=== PATIENT | female | born 1955 | race Caucasian/White ===

== ENCOUNTER 2016-07-19 10:43 | Observation (INO) | payer MEDICAID ==
[~2016-07-19] VITALS: Ht 162.6 cm; Wt 121.7 kg
[2016-07-19 11:49] LABS: BASOPHILS 0.3 % (0-2); EOSINOPHILS 0.7 % (0-7); HEMATOCRIT 43.4 % (36.0-48.0); HEMOGLOBIN 14.3 g/dL (12-16); IMMATURE GRANULOCYTES 0.2 % (0-5); LYMPHOCYTES 4.3 % (15-50); MCH 30.2 pg (26.0-34.0); MCHC 32.9 g/dL (31.0-37.0); MCV 91.8 fL (80.0-100.0); MONOCYTES 5.4 % (2-11); NEUTROPHILS 89.1 % (40-80); PLATELET COUNT 237 10x3/uL (130-400); RBC 4.73 10x6/uL (4.00-5.40); RDW 13.8 % (11.5-14.5); WBC 12.9 10x3/uL (4.8-10.8)
[2016-07-19 12:27] LABS: ALBUMIN 3.6 g/dL (3.4-5.0); ALKALINE PHOSPHATASE 111 U/L (46-116); ALT (SGPT) 29 U/L (10-68); BILIRUBIN - TOTAL 0.76 mg/dL (0.2-1.3); CALC OSMOLALITY 279 mosm/kg (275-300); CALCIUM 9.2 mg/dL (8.5-10.1); CARBON DIOXIDE 25.6 mmol/L (21.0-32.0); CHLORIDE - SERUM 105 mmol/L (98-107); CREATININE - SERUM 0.9 mg/dL (0.6-1.3); GLUCOSE 104 mg/dL (74-106); POTASSIUM - SERUM 4.7 mmol/L (3.5-5.1); SODIUM 140 mmol/L (136-145); UREA NITROGEN 14 mg/dL (7-18); eGFR NON AFRICAN AMERICAN 67 mL/min (90-120)
[2016-07-19 12:31] LABS: CKMB 0.5 U/L (0.0-3.6); CREATINE KINASE 89 UL (21-215)
[2016-07-19 12:32] LABS: TROPONIN-I < 0.017 ng/mL (0.000-0.060)
--- NOTE | 2016-07-19 15:29 | NUR ---
TRANSFER FROM ER BY W/C. MARITOINTED TO ROOM. CALL LIGHT IN REACH. WILL CONT. PLAN OF CARE.
[2016-07-19 16:01] VITALS: BP 130/79; Ht 162.6 cm; Wt 121.7 kg
[2016-07-19 16:58] VITALS: BP 130/79
[2016-07-19 19:00] VITALS: BP 137/71
--- NOTE | 2016-07-19 19:00 | NUR ---
INITIAL ROUNDS MADE. PT SITTING UP IN BED WITH FAMILY IN ROOM. NO NEEDS OR C/O VOICED AT THIS TIME. WILL CONT TO MONITOR. CALL LIGHT IN REACH.
[2016-07-20] VITALS: BP 112/53
--- NOTE | 2016-07-20 00:05 | NUR ---
RARE/ENDANGERED SPECIES SPECIALIST AT BEDSIDE FOR VS. NEEDS ADDRESSED AT THIS TIME. CALL LIGHT IN REACH. WILL CONT TO MONITOR.
[2016-07-20 05:38] VITALS: BP 128/70
--- NOTE | 2016-07-20 09:00 | NUR ---
URINE SPECIMEN COLLECTED AND TAKEN TO LAB FOR UA. WILL MONITOR.
[2016-07-20 09:33] LABS: APPEARANCE CLOUDY (CLEAR); BACTERIA MANY /hpf (NONE SEEN); BILIRUBIN NEGATIVE (NEGATIVE); COLOR YELLOW (YELLOW); EPITHELIAL CELLS 0-5 /hpf (0-5); GLUCOSE NEGATIVE (NEGATIVE); KETONE LARGE mg/dL (NEGATIVE); LEUKOCYTE ESTERASE 1+ (NEGATIVE); MUCUS <1+ /lpf (NONE SEEN); NITRITE POSITIVE (NEGATIVE); PROTEIN TRACE mg/dL (NEGATIVE); RED CELLS - URINE OCC /hpf (0-5); SPECIFIC GRAVITY 1.015 (1.005-1.020); UROBILINOGEN NORMAL (NORMAL)
[2016-07-20] MEDS ORDERED: BACTRIM DS TABL1 TAB PO (12:55)
--- NOTE | 2016-07-20 13:22 | NUR ---
IV AND TELEMETRY DCD. DC PLANS GIVEN. UNDERSTANDING VOICED. ESCORTED TO CAR BY W/C.
== END 2016-07-20 13:27 | disposition home or self-care (01) ==
LOC: D.ER 10:43 → D.M2 14:48 → OBSVTIME 14:48 → D.M2 14:48
PROVIDERS: Emergency Medicine; ADMIT Internal Medicine Cardiovascular Disease
DX: I20.0 Unstable angina (principal); N39.0 Urinary tract infection, site not specified

== ENCOUNTER 2020-09-07 13:17 | Emergency (ER) | payer MEDICARE ==
[~2020-09-07] VITALS: Ht 162.6 cm; Wt 104.5 kg
[~2020-09-07 13:17] MED LIST: BACTRIM DS TABL1 TAB PO
[2020-09-07 13:38] VITALS: Ht 162.6 cm; Wt 104.5 kg
[2020-09-07 14:10] LABS: BASOPHILS 0.9 % (0-2); EOSINOPHILS 1.6 % (0-7); HEMATOCRIT 43.8 % (36.0-48.0); HEMOGLOBIN 14.3 g/dL (12-16); LYMPHOCYTES 10.2 % (15-50); MCH 29.2 pg (26.0-34.0); MCHC 32.7 g/dL (31.0-37.0); MCV 89.4 fL (80.0-100.0); MEAN PLATELET VOLUME 8.6 fL (7.4-10.4); MONOCYTES 4.7 % (2-11); NEUTROPHILS 82.6 % (40-80); WBC 9.3 10x3/uL (4.8-10.8)
[2020-09-07 14:11] LABS: PLATELET COUNT 300 10x3/uL (130-400)
[2020-09-07 14:22] LABS: ANION GAP 14.1 mmol/L (8-16); CALCIUM 9.4 mg/dL (8.5-10.1); CARBON DIOXIDE 28.2 mmol/L (21.0-32.0); POTASSIUM - SERUM 4.3 mmol/L (3.5-5.1)
[2020-09-07 14:28] LABS: BILIRUBIN - TOTAL 0.59 mg/dL (0.2-1.3); PROTEIN - SERUM 7.8 g/dL (6.4-8.2)
[2020-09-07] MEDS ORDERED: HYDROCODON-ACE1 EAC7 PO (16:59)
[2020-09-07] MEDS ORDERED: AUGMENTIN 875-11 TAB PO (16:59)
[2020-09-07 18:22] VITALS: BP 141/88
== END 2020-09-07 18:35 | disposition home or self-care (01) ==
LOC: D.ER 13:17
PROVIDERS: Family Medicine
DX: S01.81XA Laceration without foreign body of other part of head, initial encounter (principal); S42.301A Unspecified fracture of shaft of humerus, right arm, initial encounter for closed fracture; W18.30XA Fall on same level, unspecified, initial encounter; Y93.9 Activity, unspecified; Y92.9 Unspecified place or not applicable; M25.511 Pain in right shoulder